=== PATIENT | female | born 1970 | race Caucasian/White ===

== ENCOUNTER → 2018-06-05 | Outpatient (CLI) | payer BC | END | disposition home or self-care (01) | LOC: KCIC 13:23 | DX: R06.09 Other forms of dyspnea (principal); R05 Cough | CPT/HCPCS: 71046 ==

== ENCOUNTER → 2018-07-06 | Outpatient (CLI) | payer BC ==
[2014-07-30 01:06] VITALS: BP 107/53
[~2018-07-06] MED LIST: ALPR0.25 PO
--- NOTE | 2018-07-06 16:02 | CARD ---
MR#: [id number] Date of Study: 07/06/2018 Ordering Physician: RANDOLPH CHERRY, Referring Physician: RANDOLPH CHERRY, Tech: Candy Alberto APPROVED REPORT EXAM: Two-dimensional and M-mode echocardiogram with Doppler and color Doppler. Other Information Quality : AverageHR: 67bpm INDICATION Pericardial Effusion Tobacco 2D DIMENSIONS Left Atrium(2D)2.4 (1.6-4.0cm)IVSd0.6 (0.7-1.1cm) Aortic Root(2D)2.7 (2.0-3.7cm)LVDd3.9 (3.9-5.9cm) LVOT Diameter2.0 (1.8-2.4cm)PWd0.6 (0.7-1.1cm) LVDs2.9 (2.5-4.0cm)FS (%) 27.5 % SV36.5 mlLVEF(%)54.1 (>50%) Aortic Valve AoV Peak Gabe.122.9cm/sAoV VTI23.0cm AO Peak GR.6.0mmHgLVOT Peak Gabe.88.6cm/s AO Mean GR.3mmHgAVA (VMAX)2.26cm2 WONG (VTI)2.40cm2 Mitral Valve MV E Lzkjpcws23.2cm/sMV DECEL LHRV034un MV A Nsrcbdyf48.1cm/sE/A Ratio1.0 Tricuspid Valve TR P. Upojofyl948yf/sTR Peak Gr.22mmHg Pulmonary Vein S1 Qkeheuht53.9cm/sD2 Gmiwfwmz48.2cm/s PVa [id number] LEFT VENTRICLE Limited study. The left ventricle is normal size. There is normal left ventricular wall thickness. Th e left ventricular systolic function is normal and the ejection fraction is within normal range. The Ejection Fraction is 55-60%. There is normal LV segmental wall motion. The left ventricular diastolic function and filling is normal for age. RIGHT VENTRICLE The right ventricle is normal size. The right ventricular systolic function is normal. ATRIA The left atrium size is normal. The right atrium size is normal. AORTIC VALVE The aortic valve is slightly thickened but opens well. Doppler and Color Flow revealed no significant aortic regurgitation. There is no significant aortic valvular stenosis. MITRAL VALVE The mitral valve is thickened but opens well. There is no mitral valve stenosis. Doppler and Color Fl ow revealed no mitral valve regurgitation noted. TRICUSPID VALVE The tricuspid valve is normal in structure and function. Doppler and Color Flow revealed trace tricus pid regurgitation. GREAT VESSELS Not imaged PERICARDIAL EFFUSION There is a small pericardial effusion with no hemodynamic compromise. Critical Notification Critical Value: No <Conclusion> Limited study. The left ventricle is normal size. The left ventricular systolic function is normal and the ejection fraction is within normal range. The Ejection Fraction is 55-60%. There is no significant aortic valvular stenosis. Doppler and Color Flow revealed no significant aortic regurgitation. Doppler and Color Flow revealed no mitral valve regurgitation noted. Doppler and Color Flow revealed trace tricuspid regurgitation. There is a small pericardial effusion with no hemodynamic compromise. Signed by : Randolph Cherry MD Electronically Approved : 07/06/2018 16:00:51
== END | disposition home or self-care (01) ==
LOC: ECHO 13:03
PROVIDERS: ATTEND Internal Medicine Cardiovascular Disease
DX: I31.3 Pericardial effusion (noninflammatory) (principal); Z90.710 Acquired absence of both cervix and uterus
CPT/HCPCS: 93306

== ENCOUNTER → 2018-07-10 | Outpatient (CLI) | payer BC ==
[2014-07-30 01:06] VITALS: BP 107/53
[~2018-07-10] MED LIST changes: +BARIUM SULFATE 2.1% 450 ML SUSP PO ONE
--- NOTE | 2018-07-10 11:07 | KCIC ---
CT of the abdomen and pelvis without IV contrast 07/10/2018 INDICATION: Left upper abdominal pain. IBS. COMPARISON STUDY: CT of the abdomen and pelvis without IV contrast July 04, 2014. TECHNIQUE: Multidetector CT imaging of the abdomen and pelvis is performed without the administration of IV contrast. Oral contrast was administered prior to exam. : Visualized lung bases are grossly unremarkable. Small amount of pericardial effusion is noted anteriorly liver, gallbladder, spleen, adrenal glands, pancreas, kidneys have an unremarkable noncontrast enhanced appearance. There is no bowel obstruction. Mild descending colonic diverticulosis is noted. No evidence of acute inflammatory change involving the bowel is identified.Hysterectomy and appendectomy noted.No free fluid or free air is seen in the abdomen or pelvis. Retroaortic left renal vein incidentally noted. No acute osseous abnormality is identified. IMPRESSION: 1. No evidence of acute intra-abdominal abnormality is identified 2. Small pericardial effusion. Findings, incidental. Correlate with clinical findings. 3. Mild descending colonic diverticulosis without evidence of acute diverticulitis. CT DOSING PQRS STATEMENT: One or more of the following individualized dose reduction techniques were utilized for this examination: 1. Automated exposure control 2. Adjustment of the mA and/or kV according to patient size 3. Use of iterative reconstruction technique Electronically signed by: Kaden Cazares MD (07/10/2018 11:03 AM) [facility]
== END | disposition home or self-care (01) ==
LOC: KCIC CT 08:33
PROVIDERS: ATTEND Nurse Practitioner Family
DX: I31.3 Pericardial effusion (noninflammatory) (principal); K57.30 Diverticulosis of large intestine without perforation or abscess without bleeding; Z90.710 Acquired absence of both cervix and uterus
CPT/HCPCS: 74176

== ENCOUNTER → 2019-02-25 | Day surgery (SDC) | payer BC ==
[~2019-02-25] MED LIST changes: -BARIUM SULFATE 2.1% 450 ML SUSP PO ONE; +BREO ELLIPTA 11 EACH IH; +DEXL60CA2 PO; +FAMO1TAB3 PO; +HYDROmorphone 2 MG/ML VIAL IV PRN; +IV RINGERS,LACTATED 1000ML 1,000 ML IV SCH; +LIDOCAINE 2% PF 5 ML VIAL. ONE; +MORPHINE SULFATE 2 MG/ML VIAL. IV PRN; +NICO1PAT25 TP; +ONDANSETRON PF 4 MG/2 ML VIAL. IV PRN; +PROCHLORPERAZINE 10 MG/2 ML VIAL. IV PRN; +PROPOFOL 60 ML IV ONE; +fentaNYL PF VIAL 100 MCG/2 ML VIAL IV PRN
[2019-02-25 10:49] VITALS: BP 95/51
--- NOTE | 2019-02-25 10:53 | PREOP HP ---
DATE OF SERVICE: 02/25/2019 ANTICIPATED DATE OF PROCEDURE: 02/25/2019. REQUESTING PHYSICIAN: Cara Moore M.D. REASON FOR PROCEDURE: Epigastric pain and change in bowel habit. HISTORY OF PRESENT ILLNESS: This is a 48-year-old female who presents for epigastric and left upper quadrant pain. She is to undergo upper and lower endoscopy for further evaluation. ALLERGIES: IODINATED CONTRAST. PAST MEDICAL HISTORY: 1. Diverticulitis. 2. Hemorrhoids. SOCIAL HISTORY: She previously drank alcohol and she is a current smoker. She denies IV drug abuse. MEDICATIONS: MAR reviewed. REVIEW OF SYSTEMS: A 13-point review of systems was done. It is positive as per HPI and otherwise negative. PHYSICAL EXAMINATION: GENERAL: This is a thin female, in no apparent distress. HEENT: Oropharynx is clear. CARDIOVASCULAR: S1, S2. LUNGS: Clear. ABDOMEN: Normoactive bowel sounds. Soft, nontender and nondistended. EXTREMITIES: No edema. NEUROLOGIC: Awake, oriented x 3. ASSESSMENT AND PLAN: 1. Epigastric pain. Plan for upper endoscopy for further evaluation. Risks and benefits including bleeding, perforation, non-diagnosis and sedation were explained and she has agreed to proceed. 2. Change in bowel habits. Plan for colonoscopy for further evaluation. The risks and benefits including bleeding, perforation, non-diagnosis and sedation were explained. She has agreed to proceed. MARGARET KUHN MD DR: NITA/veto JOB#: [id number] / [id number]
--- NOTE | 2019-02-26 14:07 | PATHOLOGY ---
[facility] Accession Number: [id number] . 01 Material submitted: . PART A: SMALL BOWEL BIOPSY PART B: GASTRIC ANTRUM BIOPSY PART C: DISTAL ESOPHAGUS BIOPSY PART D: TERMINAL ILEUM BIOPSY PART E: RIGHT COLON BIOPSY PART F: LEFT COLON BIOPSY . 01 Clinician provided ICD-10: n . 01 Clinical history: . Abdominal pain, CRCS . 02 Diagnosis: A. Small bowel biopsy: - No significant pathologic abnormalities. . B. Gastric biopsy, antrum: - Congestion and focal mild chronic inflammation. . C. Esophageal biopsy, distal esophagus: - Segment of gastric mucosa showing mild chronic inflammation. . D. Small intestine mucosa, terminal ileum biopsy: - No significant pathologic abnormalities. . E. Colonic mucosa, right colon biopsies: - No significant pathologic abnormalities. . F. Colonic mucosa, left colon biopsies: - No significant pathologic abnormalities. (JPM:cristina; 02/26/2019) QMS/02/26/2019 . 02 Comment: Sections of the small bowel biopsy reveal segments of duodenal and small intestine mucosa. Where best oriented, the mucosal villi show no sprue-like changes or significant inflammatory changes. . Sections of the gastric antral biopsy show congestion and focal mild chronic inflammation. A properly controlled immunoperoxidase stain for Helicobacter is negative for Helicobacter organisms. . Sections of the distal esophageal biopsy reveal a segment of gastric mucosa showing mild chronic inflammation. There is no squamous esophageal mucosa. There is no evidence of Mendez's change, dysplasia, or malignancy. . Sections of the terminal ileum biopsy reveal small intestine mucosa containing a couple of mucosal-associated lymphoid aggregates. The mucosal villi show no sprue-like changes or significant inflammatory changes. . Sections of the right colon and left colon biopsies appear similar and reveal segments of colonic mucosa. There is no evidence of a chronic destructive colitis, lymphocytic colitis, or collagenous colitis. (JPM:cristina; 02/26/2019) . . Special stain performed: Immunoperoxidase stain for Helicobacter on B1. . 02 Electronically signed: . Paul Ruiz MD, Pathologist NPI- [id number] . 01 Gross description: . A. Received in formalin labeled "Julio César, Emily, small bowel BX," are 4 segments of pickens soft tissue measuring 1.7 x 0.9 x 0.3 cm in aggregate dimensions and ranging from 0.4 to 0.6 cm in maximum dimension. The specimen is submitted entirely in cassette A1. . B. Received in formalin labeled "Julio César, Emily, gastric antrum BX," are 2 segments of pickens soft tissue measuring 0.8 x 0.3 x 0.2 cm in aggregate dimensions and ranging from 0.3 to 0.5 cm in maximum dimension. The specimen is submitted entirely in cassette B1. . C. Received in formalin labeled "Julio César, Emily, distal esophagus BX," is a single segment of pickens soft tissue measuring 0.5 cm in maximum dimension. The specimen is entirely submitted in cassette C1. . D. Received in formalin labeled "Julio César, Emily, terminal ileum BX," is a single segment of pickens soft tissue measuring 0.5 cm in maximum dimension. The specimen is entirely submitted in cassette D1. . E. Received in formalin labeled "Emily Angela, right colon BX," are 4 segments of pickens soft tissue measuring 1.1 x 0.8 x 0.2 cm in aggregate dimensions and ranging from 0.1 to 0.5 cm in maximum dimension. The specimen is submitted entirely in cassette E1. . F. Received in formalin labeled "Emily Angela, left colon BX," are 3 segments of pickens soft tissue measuring 1.1 x 0.8 x 0.3 cm in aggregate dimensions and ranging from 0.3 to 0.5 cm in maximum dimension. The specimen is submitted entirely in cassette F1. (TSD; 02/25/2019) TOB/TOB . 02 Pathologist provided ICD-10: K29.50, R10.13, K21.9 . 02 CPT . 746176, 638898, 731013, 445700, [id number], [id number], [id number] Specimen Comment: A courtesy copy of this report has been sent to Specimen Comment: [phone], . Specimen Comment: Report sent to / DR HUFF Performed at: 01 [facility] [address] [facility] [address] [facility] [address], [place] [id number] MD Adolph Ford MD Phone: [phone] Performed at: 02 [facility] [address] [place], [place] [id number] MD Paul Ruiz MD Phone: [phone]
== END | disposition home or self-care (01) ==
LOC: SURG 08:12
PROVIDERS: ATTEND Internal Medicine Gastroenterology
DX: K57.30 Diverticulosis of large intestine without perforation or abscess without bleeding (principal); K21.0 Gastro-esophageal reflux disease with esophagitis; K31.89 Other diseases of stomach and duodenum; K64.0 First degree hemorrhoids; Z91.041 Radiographic dye allergy status; F32.9 Major depressive disorder, single episode, unspecified; F41.9 Anxiety disorder, unspecified; F17.210 Nicotine dependence, cigarettes, uncomplicated; Z79.899 Other long term (current) drug therapy; Z90.710 Acquired absence of both cervix and uterus; Z98.890 Other specified postprocedural states
CPT/HCPCS: 43239; 45380; 88305; 88342; J2001; J2704